=== PATIENT | female | born 1995 | race Two or more races ===

== ENCOUNTER 2022-05-18 17:54 | Emergency (ER) | payer MEDICAID ==
[2022-05-18] MEDS ORDERED: Amoxicillin/Clavulanate K 875-125 MG Tab PO ONE (18:47)
== END 2022-05-18 18:56 | disposition home or self-care (01) ==
LOC: DL.ED 17:54
DX: S01.551A Open bite of lip, initial encounter (principal); F17.210 Nicotine dependence, cigarettes, uncomplicated; E66.9 Obesity, unspecified; Z68.42 Body mass index [BMI] 45.0-49.9, adult; Z88.5 Allergy status to narcotic agent; Z88.8 Allergy status to other drugs, medicaments and biological substances; Z86.16 Personal history of COVID-19; W55.01XA Bitten by cat, initial encounter
CPT/HCPCS: 99282; A9270

== ENCOUNTER 2022-12-14 14:12 | Emergency (ER) | payer MEDICAID ==
[2022-12-14] MEDS: Silver Sulfadiazine 1% Crm 50 GM Tube TOP ONE (16:28)
== END 2022-12-14 16:35 | disposition home or self-care (01) ==
LOC: DL.ED 14:12
DX: T23.221A Burn of second degree of single right finger (nail) except thumb, initial encounter (principal); Z88.5 Allergy status to narcotic agent; Z88.8 Allergy status to other drugs, medicaments and biological substances; X08.8XXA Exposure to other specified smoke, fire and flames, initial encounter; Y93.G2 Activity, grilling and smoking food; Y92.69 Other specified industrial and construction area as the place of occurrence of the external cause
CPT/HCPCS: 99282; 99283; A9270

== ENCOUNTER 2023-02-15 19:05 | Emergency (ER) | payer MEDICAID | END 2023-02-15 20:14 | disposition home or self-care (01) | LOC: DL.ED 19:05 | DX: K64.4 Residual hemorrhoidal skin tags (principal); K64.8 Other hemorrhoids; B37.2 Candidiasis of skin and nail; E66.9 Obesity, unspecified; F17.210 Nicotine dependence, cigarettes, uncomplicated; Z68.42 Body mass index [BMI] 45.0-49.9, adult; Z86.16 Personal history of COVID-19; Z88.8 Allergy status to other drugs, medicaments and biological substances; Z88.5 Allergy status to narcotic agent | CPT/HCPCS: 99283 ==

== ENCOUNTER 2023-09-12 22:09 | Emergency (ER) | payer MEDICAID | END 2023-09-13 01:07 | disposition home or self-care (01) | LOC: DL.ED 22:09 | DX: M79.652 Pain in left thigh (principal); F17.290 Nicotine dependence, other tobacco product, uncomplicated; Z88.5 Allergy status to narcotic agent; Z88.8 Allergy status to other drugs, medicaments and biological substances; Z79.899 Other long term (current) drug therapy; Z86.16 Personal history of COVID-19; W18.49XA Other slipping, tripping and stumbling without falling, initial encounter | CPT/HCPCS: 73562-LT; 99283 ==

== ENCOUNTER 2024-03-17 14:39 | Emergency (ER) | payer MEDICAID, OTHER ==
[2024-03-17] MEDS: Take Home: Sulfamethoxazole/Trimethoprim 800-160 MG Tab, 6 Tab Pack PO ONE (15:20)
== END 2024-03-17 15:18 | disposition home or self-care (01) ==
LOC: DL.ED 14:39
DX: N61.0 Mastitis without abscess (principal); E66.9 Obesity, unspecified; Z86.16 Personal history of COVID-19; Z88.5 Allergy status to narcotic agent; Z88.8 Allergy status to other drugs, medicaments and biological substances; Z79.899 Other long term (current) drug therapy; Z68.43 Body mass index [BMI] 50.0-59.9, adult
CPT/HCPCS: 99283; 99284; A9270

== ENCOUNTER 2024-12-28 22:56 | Emergency (ER) | payer OTHER ==
[2024-12-29] MEDS: Amoxicillin/Clavulanate K 875-125 MG Tab PO ONE (00:42)
[2024-12-29] MEDS: Ketorolac 30 MG/ML SDV IM ONE (00:45)
== END 2024-12-29 00:51 | disposition home or self-care (01) ==
LOC: DL.ED 22:56
DX: K04.7 Periapical abscess without sinus (principal); K02.9 Dental caries, unspecified; F17.210 Nicotine dependence, cigarettes, uncomplicated; Z88.5 Allergy status to narcotic agent; Z88.8 Allergy status to other drugs, medicaments and biological substances; Z79.899 Other long term (current) drug therapy
CPT/HCPCS: 99282; A9270

== ENCOUNTER 2024-12-29 12:12 | Emergency (ER) | payer OTHER ==
[2024-12-29] MEDS: cefTRIAXone 1 GM, Lidocaine 1% 2.1 ML IM ONE (13:10)
[2024-12-29] MEDS: Take Home: Clindamycin HCl 150 MG, 12 Cap Pack PO ONE ×2 (13:10)
== END 2024-12-29 13:14 | disposition home or self-care (01) ==
LOC: DL.ED 12:12
DX: K04.7 Periapical abscess without sinus (principal); Z88.5 Allergy status to narcotic agent; Z88.8 Allergy status to other drugs, medicaments and biological substances; Z79.899 Other long term (current) drug therapy
CPT/HCPCS: 96372; 99282; 99283; A9270-GY; J0696; J2003